=== PATIENT | female | born 1950 | race Caucasian/White ===

== ENCOUNTER → 2019-06-09 | Outpatient (CLI) | payer BC | END | disposition home or self-care (01) | LOC: CFH 09:31 | PROVIDERS: ATTEND Family Medicine | DX: M85.88 Other specified disorders of bone density and structure, other site (principal); M81.0 Age-related osteoporosis without current pathological fracture | CPT/HCPCS: 77080 ==

== ENCOUNTER 2019-10-22 16:33 | Emergency (ER) | payer MEDICARE ==
[~2019-10-22] VITALS: Ht 162.6 cm; Wt 68.4 kg
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
--- NOTE | 2019-10-22 16:51 | NUR ---
PT DENIES LOC, UNSURE IF SHE HIT HEAD ON GROUND. MILD WEAKNESS IN LUE. SENSATION INTACT.
--- NOTE | 2019-10-22 17:10 | NUR ---
DR BELL AT BEDSIDE. PT ASSESSMENT REV. AND POC DISCUSSED. ORDERS REC'D.
[2019-10-22] MEDS ORDERED: MORPHINE SULFATE 4 MG/ML, 1ML ONE ×2 (17:13→18:06)
[2019-10-22] MEDS: MORPHINE SULFATE 4 MG/ML, 1ML IVPush PRN ×2 (17:16→18:07)
--- NOTE | 2019-10-22 17:21 | NUR ---
XR IN ROOM.
--- NOTE | 2019-10-22 17:26 | NUR ---
PT MED FOR PAIN NOTED, NOW APEARS TO BE MORE COMFORTABLE. RATES PAIN 4/10
[2019-10-22] MEDS ORDERED: SODIUM CHLORIDE FLUSH 10ML SYR IVF ONE (17:30)
--- NOTE | 2019-10-22 17:36 | NUR ---
PTS AT BEDSIDE.
--- NOTE | 2019-10-22 18:07 | NUR ---
ALL JEWELRY REMOVED AND GIVEN TO SPOUSE.
[2019-10-22 18:32] LABS: ALBUMIN 3.8 g/dL (3.4-5.0); ANION GAP 8 mmol/L (5-15); CALCIUM 9.5 mg/dL (8.5-10.1); CHLORIDE 108 mmol/L (98-107); CREATININE 0.94 mg/dL (0.55-1.02)
--- NOTE | 2019-10-22 18:32 | NUR ---
AFTER PT MEDICATED FOR PAIN ADDITIONAL XRAY OBTAINED.
--- NOTE | 2019-10-22 18:40 | NUR ---
TO CT VIA [facility]
--- NOTE | 2019-10-22 18:57 | NUR ---
PT RETURNED FROM CT. REPORT TO TEZ TOLEDO
--- NOTE | 2019-10-22 19:00 | NUR ---
REPORT OF PT FROM PARIS HERNANDEZ AND ASSUMING CARE OF PT AT THIS TIME. PT AND SPOUSE UPDATED ON POC AND VERBALIZE UNDERSTANDING. PT DENIES ANY NEEDS AT THIS TIME WITH CALL LIGHT WITHIN REACH.
[2019-10-22 19:01] LABS: BASOPHILS # (AUTO) 0.02 x10^3/uL (0-0.1); BASOPHILS % (AUTO) 0 % (0-1); EOSINOPHILS # (AUTO) 0.05 x10^3/uL (0-0.4); EOSINOPHILS % (AUTO) 0 % (1-7); LYMPHOCYTES # (AUTO) 1.37 x10^3/uL (1-3.4); LYMPHOCYTES % (AUTO) 13 % (22-44); MEAN CORPUSCULAR HEMOGLOBIN 29.4 pg (27.0-34.8); MEAN CORPUSCULAR HGB CONC 33.9 g/dL (32.4-35.8); MEAN CORPUSCULAR VOLUME 86.6 fL (80-100); MEAN PLATELET VOLUME 9.6 fL (7.4-10.4); MONOCYTES # (AUTO) 0.54 x10^3/uL (0.2-0.8); MONOCYTES % (AUTO) 5 % (2-9); NEUTROPHILS # (AUTO) 8.74 x10^3/uL (1.8-6.8); NEUTROPHILS % (AUTO) 82 % (42-75); PLATELET COUNT 164 x10^3/uL (130-400); RED BLOOD COUNT 5.08 x10^6/uL (3.82-5.3); RED CELL DISTRIBUTION WIDTH 12.7 % (9.6-15.2)
[2019-10-22 19:02] LABS: MD NO
[2019-10-22] MEDS ORDERED: PROPOFOL 10 MG/ML, 20ML IV ONE (20:00)
[2019-10-22] MEDS ORDERED: PROPOFOL 10 MG/ML, 20ML ONE (20:11)
--- NOTE | 2019-10-22 20:40 | NUR ---
ROOM PREPARED FOR PROCEDURAL SEDATION. PT ATTACHED TO ALL VS AND CARDIAC MONITORS. VSS. CONSENT OBTAINED. DR. BELL AT . PT QUESTIONS ANSWERED PRIOR TO START OF PROCEDURE.
--- NOTE | 2019-10-22 21:31 | NUR ---
PT TOLERATED PROCEDURE WELL. PT VSS REMAINED STABLE THROUGHOUT. PT ALERT AND ORIENTED X 4, AND PLACED IN AN IMMOBILIZER AT THIS TIME. PT REPORTS IMPROVEMENT OF PAIN POST PROCEDURE. WILL CONTINUE TO MONITOR.
--- NOTE | 2019-10-22 21:42 | NUR ---
PT TOLERATING SIPS OF FLUID. PT RESTING IN GURNEY AT THIS TIME. PT HAS CALL LIGHT WITHIN REACH AND AWAITING RIDE FROM AT THIS TIME.
[2019-10-22 22:15] VITALS: BP 134/58
--- NOTE | 2019-10-22 23:04 | NUR ---
PT D/C WITH D/C SUMMARY AND SCRIPTS. ALL QUESTIONS ANSWERED. NARCOTICS SHEET SIGNED AND PLACED WITH PT CHART. PT DENIES AN OTHER NEEDS PERTAINING TO THIS VISIT. IV D/C WITH TIP INTACT.
== END 2019-10-22 23:07 | disposition home or self-care (01) ==
LOC: ED 17:55
DX: S42.212A Unspecified displaced fracture of surgical neck of left humerus, initial encounter for closed fracture (principal); W01.0XXA Fall on same level from slipping, tripping and stumbling without subsequent striking against object, initial encounter; Y93.89 Activity, other specified; Y92.488 Other paved roadways as the place of occurrence of the external cause; Y99.8 Other external cause status
CPT/HCPCS: 23605; 36415; 73020; 73200; 80048; 82040; 85025; 93005; 96374; 96376; 99285; J2270